=== PATIENT | male | born 1980 | race Caucasian/White ===

== ENCOUNTER 2016-11-28 12:28 | Emergency (ER) | payer BC ==
[~2016-11-28] VITALS: Ht 170.2 cm; Wt 82.0 kg
[2016-11-28 12:31] VITALS: Ht 170.2 cm; Wt 82.0 kg
[2016-11-28] MEDS ORDERED: ONDANSETRON 4 MG INJ IV STA (12:43)
[2016-11-28] MEDS ORDERED: SOD CHLORIDE 0.9% 1,000 ML IV STA (12:43)
[2016-11-28] MEDS ORDERED: morphine 4 MG/ML VIAL IV STA ×2 (13:06→16:52)
[2016-11-28 13:19] LABS: ADD SCAN DIFF NO
[2016-11-28 13:23] LABS: BASOPHIL # 0.1 10^3/ul (0.0-0.1); BASOPHILS % 0.5 % (0.0-2.0); EOSINOPHILS # 0.1 10^3/ul (0.0-0.5); EOSINOPHILS % 0.4 % (0.0-7.0); HEMATOCRIT 46.4 % (42.0-52.0); HEMOGLOBIN 16.3 g/dl (14.0-18.0); LYMPHOCYTES # 1.8 10^3/ul (0.8-2.9); LYMPHOCYTES % 13.1 % (15.0-51.0); MEAN CORPUSCULAR HEMOGLOBIN 30.9 pg (29.0-33.0); MEAN CORPUSCULAR HGB CONC 35.1 g/dl (32.0-37.0); MEAN CORPUSCULAR VOLUME 87.9 fl (82.0-101.0); MEAN PLATELET VOLUME 10.7 fl (7.4-10.4); MONOCYTE # 0.8 10^3/ul (0.3-0.9); MONOCYTES % 5.4 % (0.0-11.0); NEUTROPHIL # 11.3 10^3/ul (1.6-7.5); NEUTROPHILS % 80.3 % (39.0-77.0); PLATELET COUNT 318 10^3/UL (140-415); RED BLOOD COUNT 5.28 10^6/ul (4.70-6.10); RED CELL DISTRIBUTION WIDTH 12.9 % (11.5-14.5)
[2016-11-28 13:46] LABS: ALANINE AMINOTRANSFERASE 39 IU/L (13-69); ALBUMIN 5.5 g/dl (3.3-4.9); ALBUMIN/GLOBULIN RATIO 1.48; ALKALINE PHOSPHATASE 75 IU/L (42-121); ANION GAP 19 (8-16); ASPARTATE AMINO TRANSFERASE 31 IU/L (15-46); BILIRUBIN,INDIRECT 0.8 mg/dl (0-1.1); BILIRUBIN,TOTAL 0.8 mg/dl (0.2-1.3); BLOOD UREA NITROGEN 15 mg/dl (7-20); CALCIUM 10.6 mg/dl (8.4-10.2); CARBON DIOXIDE 23 mmol/L (21-31); CHLORIDE 103 mmol/L (97-110); CREATININE 1.15 mg/dl (0.61-1.24); GLUCOSE 102 mg/dl (70-220); POTASSIUM 3.6 mmol/L (3.5-5.1); SODIUM 141 mmol/L (135-144); TOTAL PROTEIN 9.2 g/dl (6.1-8.1)
--- NOTE | 2016-11-28 13:47 | RADRPT ---
PROCEDURE: CT Abdomen and Pelvis without contrast. CLINICAL INDICATION: Abdominal pain. TECHNIQUE: CT scan of the abdomen and pelvis without contrast was performed on a multidetector hig h-resolution CT scanner. The patient was scanned without intravenous contrast. Coronal and sagittal reformatted images were obtained from the axial source images. Images were reviewed on a high-resol [employer] PACS workstation. One or more of the following dose reduction techniques were used: Automated exposure control, adjustment of the mA and/or kV according to patient size, use of iterative recon struction technique. The total exam CTDI equals 13.91 mGy and the total exam DLP equals 883.94 mGy- cm. COMPARISON: None. FINDINGS: CT abdomen: The lung bases are clear. The heart size is normal, without pericardial thickening or effusion. The liver is normal in size and density without focal mass or intrahepatic biliary dilatation. The spleen is normal in size and homogeneous in density. The stomach is grossly unremarkable. The panc reas as visualized is normal. The gallbladder and biliary tree are unremarkable and there is no alana dence for biliary dilatation. The adrenal glands are symmetric and normal. There is a small 2 mm n onobstructive right renal calculus. Otherwise, the kidneys are symmetrically unremarkable as well. No additional renal calculus or obstructive uropathy or mass lesion is seen. The aorta is of normal caliber. There is no retroperitoneal lymphadenopathy. The sanaz hepatis reg ion is clear. The small bowel and mesentery, as visualized, are unremarkable. There is circumferent ial wall thickening of the proximal transverse colon. CT pelvis: The small bowel loops situated within the pelvis are unremarkable. The pelvic organs are normal. T he pelvic sidewalls and inguinal regions are clear. The sigmoid colon and rectum are unremarkable. The appendix is normal. No mass, lymphadenopathy, or free fluid is seen. No acute inflammation is s een. The surrounding osseous structures are unremarkable. No osteolytic or osteoblastic lesion is detec isabel. IMPRESSION: 1. Circumferential wall thickening of the proximal transverse colon may be secondary to inflammator y/infectious colitis versus transient decompression. Otherwise, no evidence of acute inflammatory p rocess, mass, or lymphadenopathy in the abdomen or pelvis. 2. Small 2 mm nonobstructive right renal calculus. RPTAT: JJ .Albert Angel MD, MD Date Time Electronically viewed and signed by .Albert Angel MD, MD on 11/28/2016 13:47 .A/
[2016-11-28 13:50] LABS: ACETAMINOPHEN < 10.0 ug/ml (10.0-30.0); ETHANOL < 10.0 mg/dl; SALICYLATE < 1.0 mg/dl (5.0-30.0)
[2016-11-28] MEDS ORDERED: TRIMETHOBENZAMIDE 100 MG/ML VIAL IM ONE (14:00)
[2016-11-28] MEDS ORDERED: LORAZEPAM 2 MG INJ IV ONE ×2 (14:00→17:00)
[2016-11-28] MEDS ORDERED: DICLOFENAC SODIUM 37.5 MG/ML VIAL IV STA (14:28)
[2016-11-28] MEDS ORDERED: SOD CHLORIDE 0.9% 1,000 ML IV ONE ×2 (15:00→16:30)
[2016-11-28] MEDS ORDERED: metroNIDAZOLE 500 MG/NS (PMX) 100 ML IVPB ONE (16:30)
[2016-11-28] MEDS ORDERED: ONDANSETRON IV ONE (16:30)
[2016-11-28] MEDS ORDERED: CEFTRIAXONE 1 GM/50 ML (PMX) 50 ML IVPB ONE (16:30)
[2016-11-28] MEDS ORDERED: METOCLOPRAMIDE 10 MG INJ IV ONE (16:30)
[2016-11-28] MEDS ORDERED: DEXTROSE 5% IV ONE (16:30)
[2016-11-28] MEDS ORDERED: FLUO20CA22 PO (16:42)
[2016-11-28] MEDS ORDERED: TRAZ100T15 PO (16:43)
[2016-11-28] MEDS ORDERED: OXCA300T41 PO (16:43)
[2016-11-28] MEDS ORDERED: NAPR-688 PO (19:25)
[2016-11-28] MEDS ORDERED: HYDR-902 PO (19:25)
[2016-11-28] MEDS ORDERED: METO10TA96 PO (19:25)
[2016-11-28] MEDS ORDERED: ONDA4TAB14 PO (19:25)
[2016-11-28] MEDS ORDERED: CIPR500T4 PO (19:25)
[2016-11-28] MEDS ORDERED: METR500T PO (19:25)
--- NOTE | 2016-11-28 19:37 | ERD ---
ER Documentation Chief Complaint Date/Time DATE: 11/28/16 TIME: 19:31 Chief Complaint vomiting x 2 days, hx anxiety and bipolar HPI This 36-year-old male presented with severe nausea vomiting and mid and upper abdominal pain. He said the nausea for the last 2 days where after he vomited he felt better. Today he is not feeling better and is persistently dry heaving and vomiting stomach acid. He has had no fevers or chills. He has never had intra-abdominal surgery. No diarrhea. ROS All systems reviewed and are negative except as per history of present illness. Medications Home Meds Active Scripts Metoclopramide Hcl* (Metoclopramide Hcl*) 10 Mg Tablet, 10 MG PO Q6H Y for NAUSEA AND OR VOMITING, #20 TAB Prov:SEVERINOCLIF DO 11/28/16 Ondansetron (Ondansetron Odt) 4 Mg Tab.rapdis, 4 MG PO Q6H Y for NAUSEA AND/OR VOMITING, #10 TAB Prov:SEVERINOCLIF DO 11/28/16 Metronidazole* (Flagyl*) 500 Mg Tablet, 500 MG PO TID, #21 TAB Prov:SEVERINOCLIF DO 11/28/16 Ciprofloxacin Hcl* (Ciprofloxacin Hcl*) 500 Mg Tablet, 500 MG PO BID, #14 TAB Prov:SEVERINOCLIF DO 11/28/16 Naproxen* (Naproxen*) 500 Mg Tablet, 500 MG PO BID Y for PAIN, #20 TAB Prov:SEVERINOCLIF DO 11/28/16 Hydrocodone/Acetaminophen ([place] 10-325 Tablet) 1 Each Tablet, 1 EACH PO Q6, # 20 TAB Prov:SEVERINOTANIACLIF DO 11/28/16 Reported Medications Trazodone Hcl* (Desyrel*) 100 Mg Tab, 100 MG PO QHS, #30 TAB 11/28/16 Oxcarbazepine* (Oxcarbazepine*) 300 Mg Tablet, 300 MG PO QHS, TAB 11/28/16 Fluoxetine Hcl* (Fluoxetine Hcl*) 20 Mg Capsule, 20 MG PO QHS, CAP 11/28/16 Allergies Allergies: Coded Allergies: No Known Allergy (Unverified , 11/28/16) PMhx/Soc Medical and Surgical Hx: pt denies Medical Hx, pt denies Surgical Hx Hx Alcohol Use: Yes Hx Substance Use: Yes (MARIJUANA ) Hx Tobacco Use: No Smoking Status: Never smoker Physical Exam Vitals Vital Signs Date Time Temp Pulse Resp B/P Pulse Ox O2 Delivery O2 Flow Rate FiO2 11/28/16 19:00 78 20 161/84 100 11/28/16 16:10 98.4 86 20 173/90 100 11/28/16 12:31 98.3 82 20 169/87 99 Physical Exam Const: [] Moderate distress, appears very uncomfortable Head: Atraumatic Eyes: Normal Conjunctiva ENT: Normal External Ears, Nose and Mouth. Neck: Full range of motion..~ No meningismus. Resp: Clear to auscultation bilaterally Cardio: Regular rate and rhythm, no murmurs Abd: Soft, mild mid and upper abdominal tenderness without guarding or rebound, non distended. Normal bowel sounds Skin: No petechiae or rashes Back: No midline or flank tenderness Ext: No cyanosis, or edema Neur: Awake and alert and oriented 3, no focal deficits Psych: Normal Mood and Affect Result Diagram: 11/28/16 1315 11/28/16 1315 Results 24 hrs Laboratory Tests Test 11/28/16 13:15 11/28/16 16:30 White Blood Count 14.010^3/ul Red Blood Count 5.2810^6/ul Hemoglobin 16.3g/dl Hematocrit 46.4% Mean Corpuscular Volume 87.9fl Mean Corpuscular Hemoglobin 30.9pg Mean Corpuscular Hemoglobin Concent 35.1g/dl Red Cell Distribution Width 12.9% Platelet Count 40938^3/UL Mean Platelet Volume 10.7fl Neutrophils % 80.3% Lymphocytes % 13.1% Monocytes % 5.4% Eosinophils % 0.4% Basophils % 0.5% Nucleated Red Blood Cells % 0.0/100WBC Neutrophils # 11.310^3/ul Lymphocytes # 1.810^3/ul Monocytes # 0.810^3/ul Eosinophils # 0.110^3/ul Basophils # 0.110^3/ul Nucleated Red Blood Cells # 0.010^3/ul Sodium Level 141mmol/L Potassium Level 3.6mmol/L Chloride Level 103mmol/L Carbon Dioxide Level 23mmol/L Anion Gap 19 Blood Urea Nitrogen 15mg/dl Creatinine 1.15mg/dl Glucose Level 102mg/dl Calcium Level 10.6mg/dl Total Bilirubin 0.8mg/dl Direct Bilirubin 0.00mg/dl Indirect Bilirubin 0.8mg/dl Aspartate Amino Transf (AST/SGOT) 31IU/L Alanine Aminotransferase (ALT/SGPT) 39IU/L Alkaline Phosphatase 75IU/L Total Protein 9.2g/dl Albumin 5.5g/dl Globulin 3.70g/dl Albumin/Globulin Ratio 1.48 Lipase 93U/L Salicylates Level < 1.0mg/dl Acetaminophen Level < 10.0ug/ml Ethyl Alcohol Level < 10.0mg/dl Lactic Acid Level 1.6mmol/L Current Medications Medications (Trade) Dose Ordered Sig/[place] Route PRN Reason Start Time Stop Time Status Last Admin Dose Admin Sodium Chloride (NS) 1,000 ml @ 1,000 mls/hr Q1H STAT IV 11/28/16 12:43 11/28/16 13:42 DC 11/28/16 13:26 Ondansetron HCl (Zofran Inj) 4 mg ONCE STAT IV 11/28/16 12:43 11/28/16 12:46 DC 11/28/16 13:25 Morphine Sulfate (morphine) 4 mg ONCE STAT IV 11/28/16 13:06 11/28/16 13:07 DC 11/28/16 13:26 Trimethobenzamide HCl (Tigan) 200 mg ONCE ONCE IM 11/28/16 14:00 11/28/16 14:01 DC 11/28/16 14:06 Lorazepam (Ativan) 1 mg ONCE ONCE IV 11/28/16 14:00 11/28/16 14:01 DC 11/28/16 14:05 Diclofenac Sodium 37.5 mg 37.5 mg ONCE STAT IV 11/28/16 14:28 11/28/16 14:29 DC 11/28/16 14:45 Sodium Chloride 1,000 ml @ 1,000 mls/hr Q1H ONCE IV 11/28/16 15:00 11/28/16 15:59 DC 11/28/16 15:02 Sodium Chloride 1,000 ml @ 1,000 mls/hr Q1H ONCE IV 11/28/16 16:30 11/28/16 17:29 DC 11/28/16 17:13 Ceftriaxone Sodium 50 ml @ 100 mls/hr ONCE ONCE IVPB 11/28/16 16:30 11/28/16 16:59 DC 11/28/16 16:36 Metronidazole 100 ml @ 100 mls/hr ONCE ONCE IVPB 11/28/16 16:30 11/28/16 17:29 DC 11/28/16 17:13 Ondansetron HCl/ Dextrose (Zofran Inj/D5W) 55 ml @ 220 mls/hr ONCE ONCE IV 11/28/16 16:30 11/28/16 16:44 DC 11/28/16 16:30 Metoclopramide HCl (Reglan) 10 mg ONCE ONCE IV 11/28/16 16:30 11/28/16 16:31 DC 11/28/16 16:36 Lorazepam (Ativan) 1 mg ONCE ONCE IV 11/28/16 17:00 11/28/16 17:01 DC 11/28/16 17:11 Morphine Sulfate (morphine) 4 mg ONCE STAT IV 11/28/16 16:52 11/28/16 16:54 DC 11/28/16 17:12 Procedures/MDM Colitis with vomiting. Possibly secondary to bacterial illness but most likely viral. He had mildly elevated white blood cell count.. To be in significant distress through the first round of education and fluids. He did take several nausea medications in order to resolve the nausea. Patient was given Zofran, Tigan, Reglan, Ativan. He is also given morphine and I will inject for his pain IV. He was given to liters of IV fluid. After all of this the patient was feeling much better. He had no nausea and very little pain. I given 1 g of Rocephin and Flagyl he was still in distress. Going to discharge her with Cipro and Flagyl as well as Zofran, Reglan, [place] and naproxen. Return precautions the ER for any fevers or increasing pain or inability to take p.o. Primary care follow-up otherwise. CT abdomen pelvis interpretation: Circumferential: Inflammation of the proximal transverse colon without obstruction or free air. No fractures. pond sawyer interpretation: Normal sinus rhythm without arrhythmia Departure Diagnosis: Primary Impression: Abdominal pain Additional Impressions: Colitis Vomiting Condition: Stable Patient Instructions: Gastroenteritis, Viral (6Y-Adult), Vomiting (6Y-Adult) Additional Instructions: Call your primary care doctor TOMORROW for an appointment during the next 1-2 days.See the doctor sooner or return here if your condition worsens before your appointment time. CLIF HAQ DO Nov 28, 2016 19:36
[2016-11-28 19:48] VITALS: BP 119/69; PULSE 100; RESP 20; TEMP 98.4
== END 2016-11-28 18:44 | disposition home or self-care (01) ==
LOC: FTE 12:28
DX: R10.10 Upper abdominal pain, unspecified (principal); K52.9 Noninfective gastroenteritis and colitis, unspecified
CPT/HCPCS: 36415; 74176; 80053; 80306; 83605; 83690; 85025; 87040; 96361; 96365; 96372; 96375; 96376; 99285; J0696; J2060; J2270; J2405; J2765; J3250; J7030; Z7610